=== PATIENT | female | born 1945 | race Caucasian/White ===

== ENCOUNTER → 2024-07-01 | Outpatient (CLI) | payer MEDICARE, BC, SELFPAY ==
[2024-07-01 12:18] LABS: Glucose Estimated Average 97 mg/dL (80-131)
[2024-07-01 12:19] LABS: Cardiac Risk Estimate 3.1 RATIO (3.7-5.6); Cholesterol 216 mg/dL (132-200); HDL Cholesterol 69 mg/dL (40-60); LDL Cholesterol,Calculated 134 mg/dL (0-130); Triglycerides 65 mg/dL (30-150)
== END | disposition home or self-care (01) ==
LOC: COPL 11:01
PROVIDERS: PCP Family Medicine; Referring Provider Family Medicine; Visit Provider Family Medicine
DX: R73.01 Impaired fasting glucose (principal); E78.5 Hyperlipidemia, unspecified
CPT/HCPCS: 36415; 80061; 83036

== ENCOUNTER → 2024-12-16 | Outpatient (CLI) | payer MEDICARE, BC, SELFPAY ==
--- NOTE | 2024-12-16 | XR_ITS ---
Examination: Lumbar spine, 5 views Technique: Lumbar spine AP, lateral, coned lateral lower lumbar spine, bilateral obliques 5 views Exam date and time: December 16, 2024 1155 hours INDICATIONS: Low back pain 2 months difficulty walking FINDINGS: Severe osteopenia Severe lumbar dextroscoliosis 30 degrees Diffuse advanced facet arthropathy Chronic osteoporotic compressions L2, L1 No acute lumbar fracture Diffuse advanced lumbar degenerative disc disease IMPRESSION: Diffuse advanced lumbar degenerative disc disease Severe lumbar dextroscoliosis
== END | disposition home or self-care (01) ==
LOC: CDIM 11:02
PROVIDERS: PCP Family Medicine; Referring Provider Chiropractor; Visit Provider Chiropractor
DX: M51.360 Other intervertebral disc degeneration, lumbar region with discogenic back pain only (principal); M41.86 Other forms of scoliosis, lumbar region
CPT/HCPCS: 72110

== ENCOUNTER → 2025-02-14 | Outpatient (CLI) | payer MEDICARE, BC, SELFPAY ==
--- NOTE | 2025-02-14 12:00 | XR_ITS ---
Examination: Bone densitometry Date and time of exam:February 14, 2025 1212 hours INDICATIONS: Menopause age 51 vitamin D 6 months Technique: Lumbar spine and hip total bone mineralization values of an calculated. Peak reference and age match control results have been displayed. Findings: Lumbar spine total bone mineralization is1.133 gm/cm2. This is 0.8 standard deviations above peak reference. This is 3.4 standard deviations above age-matched controls. Hip total bone mineralization is 0.742 gm/cm2 This is 1.6 standard deviations below peak reference. This is 0.4 standard deviations above age-matched controls Impression: There is normal mineralization based on lumbar spine measurements. There is osteopenia based on hip measurements Lumbar mineralization is increase 11.4% compared with 04/22/2017 Hip mineralization is decreased 18.1% compared with 04/22/2007
== END | disposition home or self-care (01) ==
LOC: CDIM 11:36
PROVIDERS: PCP Family Medicine; Referring Provider Family Medicine; Visit Provider Family Medicine
DX: M85.88 Other specified disorders of bone density and structure, other site (principal)
CPT/HCPCS: 77080

== ENCOUNTER → 2025-04-20 | Outpatient (CLI) | payer MEDICARE, BC, SELFPAY ==
--- NOTE | 2025-04-20 14:38 | XR_ITS ---
Examination: Lumbar spine 7 views TECHNIQUE: AP, lateral, standing lateral flexion, standing lateral extension, coned lateral lower lumbar spine, JOYNER CLAUDIO 7 views Date and time: April 20, 2025 1451 hours, comparison December 16, 2024 INDICATIONS: Patient fell 03/27/2025 with extreme back pain the last 30 days FINDINGS: Severe osteopenia Lumbar dextroscoliosis 30 degrees Moderate bilateral hip osteoarthritis Advanced diffuse facet arthropathy No acute lumbar fracture Grade 1 anterolisthesis L4 on L5 Moderate to advanced diffuse lumbar degenerative disc disease Moderate lumbar spondylosis No range of motion between flexion and extension IMPRESSION: No lumbar fracture Diffuse moderate to advanced lumbar degenerative disc disease with significant spinal stenosis
== END | disposition home or self-care (01) ==
LOC: CDIM 14:23
PROVIDERS: PCP Family Medicine; Referring Provider Family Medicine; Visit Provider Family Medicine
DX: M51.360 Other intervertebral disc degeneration, lumbar region with discogenic back pain only (principal); M48.061 Spinal stenosis, lumbar region without neurogenic claudication
CPT/HCPCS: 72114